=== PATIENT | female | born 2000 | race Hispanic/Latino ===

== ENCOUNTER 2024-06-24 12:06 | Inpatient (IN) | payer BC ==
[~2024-06-24 12:06] MED LIST: Bupivacaine HCl 0.5%/Epinephrine 1:200,000/PF 30 ml Vial ONE; Bupivacaine/Epinephrine 0.25% 30 ML VIAL ONE; ePHEDrine Sulfate 50 MG/10 ML VIAL ONE
[2024-06-24 12:37] VITALS: BMI 34.2
[2024-06-24] MEDS ORDERED: Ibuprofen 800 MG TAB PO PRN (13:27)
[2024-06-24] MEDS ORDERED: Lidocaine 1% (PF) 30 ML VIAL SC PRN (13:27)
[2024-06-24] MEDS ORDERED: fentaNYL 50 mcg/mL 1 mL Vial SLOW IVP PRN (13:27)
[2024-06-24] MEDS ORDERED: Promethazine HCl 25 MG/ML VIAL IM PRN (13:27)
[2024-06-24] MEDS ORDERED: HYDROcodone/Acetaminophen 5/325 mg Tablet PO PRN ×2 (13:27)
[2024-06-24] MEDS ORDERED: hydrALAZINE 20 MG/ML VIAL SLOW IVP PRN (13:27)
[2024-06-24] MEDS ORDERED: Oxytocin 30 units/NS 500 ML 500 ML IV SCH ×2 (13:30)
[2024-06-24 13:41] LABS: Hematocrit 35.1 % (34.9-44.5); Hemoglobin 11.4 g/dL (12.0-15.5); Mean Corpuscular HGB CONC 32.5 g/dL (32.0-36.0); Mean Corpuscular Hemoglobin 26.8 pg (27.0-33.0); Mean Corpuscular Volume 82.4 fL (81.6-98.3); Mean Platelet Volume 10.7 fL (7.4-10.4); Platelet Count 211 10x3/uL (150-450); RBC Distribution Width 14.6 % (11.5-14.5); Red Blood Cell (RBC) Count 4.26 10x6/uL (3.90-5.03); White Blood Cell (WBC) Count 8.1 10x3/uL (3.5-10.5)
[2024-06-24 14:26] LABS: HBsAg Index 0.18 S/CO (0-0.99); Hep B Surf Ag - L&D Non-Reactive S/CO (NonReactive)
[2024-06-24 14:27] LABS: Syphilis Antibody Nonreactive (Nonreactive); Syphilis Antibody Index 0.06 S/CO (<1.00 Non-Reactive)
[2024-06-24] MEDS: Penicillin G Potassium 5 MILL.UNITS in Sodium Chloride 0.9% 100 ML IVPB SCH (15:24)
[2024-06-24] MEDS: Penicillin G 2.5 MILL.units 2.5 MILL.UNITS in Premix 1 BAG IVPB SCH (20:00)
[2024-06-24] MEDS: Lactated Ringer's 1,000 ML IV SCH (21:53)
[2024-06-25] MEDS: Oxytocin 30 units/NS 500 ML 500 ML IV SCH (00:12)
[2024-06-25] MEDS: fentaNYL/Ropivacaine Epidural 100 ML ONE (03:24)
[2024-06-25] MEDS ORDERED: Naloxone HCl 0.4 mg/ml Vial IVP PRN ×2 (03:25)
[2024-06-25] MEDS ORDERED: Promethazine HCl 25 MG/ML VIAL IM PRN (03:25)
[2024-06-25] MEDS ORDERED: Moisturizing Cream (Eucerin) 113 GM JAR TOP PRN (03:25)
[2024-06-25] MEDS ORDERED: Ondansetron PF 4 MG/2 ML Vial IVP PRN ×2 (03:25→17:44)
[2024-06-25] MEDS ORDERED: diphenhydrAMINE 50 MG/ML VIAL IVP PRN (03:25)
[2024-06-25] MEDS ORDERED: Lactated Ringer's 500 ML IV PRN (03:25)
[2024-06-25] MEDS ORDERED: Communication Order-Pharmacy FS SCH (03:30)
[2024-06-25] MEDS: ePHEDrine Sulfate 50 MG/10 ML VIAL SLOW IVP PRN (03:53)
[2024-06-25] MEDS: Ondansetron PF 4 MG/2 ML Vial IVP PRN (05:40)
[2024-06-25] MEDS: fentaNYL 2 mcg/Ropivacaine 0.2% Epidural 100 ML CADD EPIDURAL SCH (13:20)
[2024-06-25] MEDS: Acetaminophen 325 MG TAB PO PRN (17:43)
[2024-06-25] MEDS ORDERED: diphenhydrAMINE 25 MG CAP PO PRN (17:44)
[2024-06-25] MEDS ORDERED: hydrALAZINE 20 MG/ML VIAL SLOW IVP PRN (17:44)
[2024-06-25] MEDS ORDERED: Milk Of Magnesia 30 ML UDCUP PO PRN (17:44)
[2024-06-25] MEDS ORDERED: Oxytocin 30 units/NS 500 ML 500 ML IV SCH (17:44)
[2024-06-25] MEDS ORDERED: Bisacodyl 10 MG SUPP PR PRN (17:44)
[2024-06-25] MEDS ORDERED: Benzocaine-Menthol 82.5 ML CAN TOP PRN (17:44)
[2024-06-25] MEDS ORDERED: Preparation H Ointment 28 GM TUBE PR PRN (17:44)
[2024-06-25] MEDS ORDERED: HYDROcodone/Acetaminophen 5/325 mg Tablet PO PRN ×2 (17:44)
[2024-06-25] MEDS: Boostrix 0.5 ML (Tdap) VIAL (>/=7 yrs of age) IM ONE (19:04)
[2024-06-25] MEDS: Ferrous Sulfate 325 MG TAB PO SCH (19:04)
[2024-06-25] MEDS: Ibuprofen 800 MG TAB PO SCH (21:22)
[2024-06-25] MEDS: Docusate 100 MG CAP PO SCH (21:22)
[2024-06-26] MEDS: Ferrous Sulfate 325 MG TAB PO SCH (09:20)
[2024-06-26] MEDS: Prenatal Vitamin 1 TAB PO SCH (09:26)
[2024-06-26 23:17] VITALS: TEMP 98
[2024-06-27 07:47] VITALS: BP 105/62
== END 2024-06-27 13:05 | disposition home or self-care (01) | DRG 807 ==
LOC: CSHLD/OP 12:06 → CSHLD 13:15 → CSHPED 06-25 18:13
PROVIDERS: ADMIT Obstetrics & Gynecology; ATTEND Obstetrics & Gynecology
PROC: 10E0XZZ Delivery of Products of Conception, External Approach (ICD-10-PCS; principal; 2024-06-25)
PROC: 0UQMXZZ Repair Vulva, External Approach (ICD-10-PCS; 2024-06-25)
PROC: 10907ZC Drainage of Amniotic Fluid, Therapeutic from Products of Conception, Via Natural or Artificial Opening (ICD-10-PCS; 2024-06-25)
PROC: 10H07YZ Insertion of Other Device into Products of Conception, Via Natural or Artificial Opening (ICD-10-PCS; 2024-06-25)
DX: O48.0 Post-term pregnancy (principal); Z37.0 Single live birth; Z3A.40 40 weeks gestation of pregnancy; O71.82 Other specified trauma to perineum and vulva; O76 Abnormality in fetal heart rate and rhythm complicating labor and delivery
CPT/HCPCS: 36415; 51702; 85027; 86780; 86850; 86900; 86901; 87340; 99285; J2405; J2540; J2590; J7120